=== PATIENT | female | born 1945 | race Caucasian/White ===

== ENCOUNTER → 2017-02-12 | Outpatient (CLI) | payer MEDICARE ==
[2017-02-12 13:20] LABS: WHITE BLOOD COUNT 5.9 x10^3/uL (3.4-10)
[2017-02-12 13:50] LABS: ASPARTATE AMINO TRANSFERASE 16 U/L (15-37); BLOOD UREA NITROGEN 9 mg/dL (7-18)
== END | disposition home or self-care (01) ==
LOC: CFH 11:19
PROVIDERS: ATTEND Internal Medicine
DX: I10 Essential (primary) hypertension (principal); R94.6 Abnormal results of thyroid function studies
CPT/HCPCS: 36415; 80053; 80061; 84439; 84443; 85025